=== PATIENT | male | born 1955 | race Caucasian/White ===

== ENCOUNTER 2025-07-06 12:24 | Emergency (ER) | payer OTHER, SELFPAY ==
[2025-07-06 12:48] VITALS: BP 167/96
[2025-07-06 13:10] LABS: Hematocrit 40.8 % (39.0-52.0); Hemoglobin 14.0 g/dL (13.0-18.0); Mean Corp Hgb Conc. 34.3 g/dL (33.0-37.0); Mean Corpuscular Volume 82.1 fL (80.0-94.0); Nucleated Red Blood Cells % 0 % (-); Platelet Count 149 10^3/uL (130-400); Red Cell Dist. Width 13.6 % (11.5-14.5)
[2025-07-06 13:24] LABS: Urine Character Clear (Clear)
[2025-07-06 13:39] LABS: ALT (SGPT) 29 U/L (0-50); AST (SGOT) 24 U/L (17-59); Albumin 4.6 g/dl (3.5-5.0); Alkaline Phosphatase 50 U/L (38-126); Blood Urea Nitrogen 23 mg/dl (9-20); Calcium 9.1 mg/dl (8.4-10.2); Carbon Dioxide 21 mmol/L (22-30); Chloride 103 mmol/L (98-107); Glucose 117 mg/dl (70-99); Lipase 42 U/L (23-300); Potassium 4.3 mmol/L (3.5-5.1); Sodium 135 mmol/L (135-145); Total Protein 6.9 g/dl (6.3-8.2); eGFR 58.73
[2025-07-06 14:24] LABS: Urine Squamous Cell 0-2 /LPF (Few)
[2025-07-06 14:25] LABS: Urine White Cell 0-2 /HPF (0-5)
--- NOTE | 2025-07-06 18:26 | ED.GENMED ---
History of Present Illness
General
Chief Complaint: Flank Pain
Source: patient
Exam Limitations: none
Time Seen by Provider: 07/06/25 17:51
History of Present Illness
History of Present Illness:
70yoM with a history of hypertension, hyperlipidemia, congenital solitary kidney, and chronic back pain presenting with his for evaluation of right flank pain. Patient has been having severe back spasms over the past 4 to 5 days. He has been
having worsening pain since last night and pain woke him up in the middle of the night. Pain feels different than his chronic back pain. Pain is described as severe and is worse with any sort of movement. He takes oxycodone 20 mg 4 times daily
for pain which has not been helping. He denies any trauma and pain is nonradiating. He denies any saddle anesthesia, difficulty urinating, incontinence, fevers, abdominal pain, chest pain, shortness of breath. He lives in [place] and is in the
area visiting family for the holiday. He has previously received steroid injections in the low back but has never had surgery. He follows with [facility] and was previously told that his 'back is beyond repair' due to severe
arthritis. He was seen at urgent care prior to arrival and was sent to the ED for evaluation.
Past History
Past History
ED Past Medical History: GERD, HTN, Hypercholesterolemia and Other (History of migraine headaches, sleep apnea, hyperthyroid problems.)
ED Past Surgical History: Other (partial colectomy, knee surgery, hemorrhoidectomy)
Social History
Personal:
Living: with family
Employment: Employed
Phy Exam
General Physical Exam
General Presentation: well appearing
General Skin: warm and dry
General Habitus: normal
General Mental: alert
ENT Exam
ENT Exam: normocephalic
Cardiovascular Exam
Cardiovascular Exam: regular rate/rhythm
Pulmonary Exam
Pulmonary Exam: lungs clear, no respiratory distress, no rales, no crackles, no rhonchi, no stridor and no wheezing
Gastrointestinal Exam
Gastrointestinal Exam: non tender, soft, non distended and no cva tenderness
Neurological Exam
Neurological Exam: alert
Petal Coma Scale
Eye Opening: Spontaneous
Verbal Response: Oriented
Motor Response: Obeys Commands
GCS Total Score: 15
Musculoskeletal Exam
Musculoskeletal Exam: other (Pain elicited in R thoracic region with any trunk movement. No midline spinous process tenderness. No skin changes.)
Skin Exam
Skin Exam: normal color and warm/dry
Psychiatric Exam
Psychiatric Exam: normal mood/affect
Course
Orders/Labs/Results
Orders:
Orders
07/06/25 13:00
Complete Blood Count/With Diff Urgent
Comprehensive Metabolic Panel Urgent
Lipase Urgent
Urinalysis Reflex To Culture Urgent
Date Specimen was Collected: 07/06/25
Time Specimen was Collected: 12:47
Urine Microscopic Reflex Cult Urgent
07/06/25 18:24
CT Abd/pel Without Iv Or Oral Urgent
Comment:
Reason For Exam: R flank pain
Acetaminophen 1000MG/100Ml [Ofirmev] 1,000 mg in 100 ml IV ONCE
Acetaminophen IV Indication:: ED Narcotic History-ONCE
HYDROmorphone [Dilaudid] 1 mg IV NOW STA
07/06/25 18:25
Lidocaine [Lidocaine 4% Patch] 1 patch TOPICAL ONCE ONE
Apply Lidocaine patch(s) to:: R flank
07/06/25 20:13
HYDROmorphone [Dilaudid] 1 mg IV NOW STA
Abnormal Lab Results
07/06/25
13:00
Carbon Dioxide 21 L mmol/L
(22-30)
BUN 23 H mg/dl
(9-20)
Glucose 117 H mg/dl
(70-99)
Ur Occult Blood Reflex 1+ A
(Negative)
Urine RBC 3-6 A /HPF
(0-2)
Urine Bacteria (Reflex) Few A
(Negative)
Urine Glucose 4+ A
(Negative)
07/06/25 13:00
07/06/25 13:00
Vital Signs
Initial and Last Documented VS:
Initial Vital Signs
Temp Pulse Resp BP Pulse Ox
98.5 F 77 18 167/96 98
07/06/25 12:48 07/06/25 12:48 07/06/25 12:48 07/06/25 12:48 07/06/25 12:48
Last Documented Vital Signs
Temp Pulse Resp BP Pulse Ox
98.5 F 73 16 128/70 97
07/06/25 12:48 07/06/25 18:42 07/06/25 18:42 07/06/25 20:00 07/06/25 20:15
MDM/Problems Addressed
Differential Diagnosis Includes:
70yoM here with R flank pain. Hx of chronic back pain. Has been having muscle spasms x 4-5 days and pain worsened last night. Worse with movement. No red flags in history including no fevers, incontinence, saddle anesthesia, hx of malignancy. He is
hypertensive with otherwise stable vitals. Pain elicited with trunk movement on exam. Differential diagnosis includes: muscular strain/spasm, doubt kidney stone given absent R kidney, acute on chronic back pain
Initial ED plan: Workup initiated in triage. Renal function and white count normal. UA with microscopic hematuria which patient reportedly has a history of but no signs of infection noted. Will check CT abdomen without contrast given history of
solitary kidney. IV Dilaudid, Ofirmev, and lidocaine patch for symptoms.
*Pulse Oximetry
SaO2: 98
Patient hypoxic: no
*Critical Care Note
Total Time (30-74mins, 75-104mins- exclusive of procedures): Not Applicable
Update Note
Update Note:
CT is negative for acute findings. Specifically, no evidence of obstructive uropathy and appendix is unremarkable. There is a small anterior pericardial effusion noted although he is not having any symptoms of this. Suspect musculoskeletal pain.
He is requesting a prescription for pain medication although chronically takes oxycodone 20 mg and also has Flexeril at home. He was advised to follow-up with his pain medicine physician as well as his bleacher kraft pulp for the pericardial effusion
noted on today's CAT scan. ED return precautions reviewed and he was discharged in stable condition.
ED Attending Note
-
Portions of this chart may have been created with voice recognition software.� Occasional wrong word or��sound alike� substitutions may have occurred due to the inherent limitations of voice recognition software.
Discharge Plan
Departure
Patient Disposition: Home (Routine Discharge)
Date of Disposition: 07/06/25
Time of Disposition: 20:20
Patient with high blood pressure during this ER visit?: Yes
Discharge Problem:
Right flank pain
Instructions: Flank Pain (DC)
Prescriptions:
No Action
aspirin [Aspir-81] 81 MG tablet,delayed release (DR/EC)
81 mg PO DAILY
lorazepam [Ativan] 2 MG tablet
2 mg PO DAILY PRN (Reason: sleep)
esomeprazole magnesium [Nexium] 40 MG capsule,delayed release(DR/EC)
40 mg PO DAILY
docosahexaenoic acid-epa 1 CAP capsule
3 cap PO DAILY
Patient Comments:
total of 1200 mg daily
Losartan-Hctz
1 tab PO DAILY
Patient Comments:
50/12.5
Pravastatin Sodium
40 mg PO HS
hydrocodone-acetaminophen 1 TABLET tablet
1 tab PO Q4HPRN PRN (Reason: pain) Qty: 15 0RF
montelukast 10 MG tablet
100 mg PO DAILY
nebivolol [Bystolic] 5 MG tablet
5 mg PO DAILY
Levocetirizine Dihydrochloride
5 mg PO DAILY
Amoxicillin
1 tab PO BID
Patient Comments:
unsure of dose. Just started today
prednisone 50 MG tablet
50 mg PO DAILY Qty: 5 0RF
Referrals:
YUMI BELLO [Other]
Activity Restrictions/Additional Instructions:
Continue taking Flexeril and oxycodone as prescribed by your pain management doctor. Use lidocaine patches daily (12 hours on, 12 hours off).
Please follow-up with your family doctor and pain management doctor. You should also see your bleacher kraft pulp due to the small pericardial effusion on today's CT.
Return to the ER with any new or worsening symptoms.
Interventions
Interventions:
*General Assessment Last Done: 07/06/25 18:42
*Neglect/Abuse Screening Last Done: 07/06/25 18:42
*ED COVID-19 Vaccine History Last Done: 07/06/25 18:42
*ED Influenza Vaccine History Last Done: 07/06/25 18:42
[facility] Fall Risk Assessment Tool Last Done: 07/06/25 18:42
*Risk Screen - Suicide (C-SSRS) Last Done: 07/06/25 19:12
*Nursing Disposition Last Done: 07/06/25 21:03
JC-Oihuzm-Rhcptsubnu Assessment Last Done: 07/06/25 19:11
ED-Male Genitourinary Assessment Last Done: 07/06/25 18:42
Discharge Date and Time
Discharge Date/Time: 07/06/25 21:05
Print Language: [id number]
[2025-07-06] MEDS: DILAUDID 1 MG IV ×2 (18:33→20:22)
[2025-07-06] MEDS: LIDOCAINE 4% PATCH 1 PATCH TOPICAL (18:38)
[2025-07-06] MEDS: OFIRMEV 100 IV (18:38)
[2025-07-06 18:42] VITALS: BP 151/95; BMI 33.5
[2025-07-06 19:28] VITALS: BP 149/76
[2025-07-06 20:00] VITALS: BP 128/70
== END 2025-07-06 21:05 | disposition home or self-care (01) ==
LOC: EMR 12:24
PROVIDERS: EMERGENCY PHYSICIAN Emergency Medicine
DX: R10.A1 Flank pain, right side (principal); M62.830 Muscle spasm of back; I31.39 Other pericardial effusion (noninflammatory); R31.29 Other microscopic hematuria; M54.9 Dorsalgia, unspecified; E78.00 Pure hypercholesterolemia, unspecified; I10 Essential (primary) hypertension; K21.9 Gastro-esophageal reflux disease without esophagitis; M19.90 Unspecified osteoarthritis, unspecified site; G89.29 Other chronic pain; G47.30 Sleep apnea, unspecified; G43.909 Migraine, unspecified, not intractable, without status migrainosus; E05.90 Thyrotoxicosis, unspecified without thyrotoxic crisis or storm; Z98.0 Intestinal bypass and anastomosis status; Z88.1 Allergy status to other antibiotic agents
CPT/HCPCS: 99284; 96374; 96375; 96376; 74176; 80053; 81003; 81015; 83690; 85025